=== PATIENT | male | born 1955 | race Hispanic/Latino ===

== ENCOUNTER 2020-06-08 19:26 | Inpatient (IN) | payer MEDICARE, OTHER ==
[2020-06-08 20:26] LABS: #Basophils 0.1 thou/uL (0.0-0.2); #Lymphocytes 1.7 thou/uL (1.20-3.40); #Neutrophils 6.6 thou/uL (1.40-6.50); %Basophils 1.2 % (0.0-1.0); %Eosinophils 9.3 % (0.0-10.0); %Lymphocytes 16.3 % (21.0-51.0); %Monocytes 9.3 % (0.0-10.0); Hemoglobin 14.2 g/dL (14.0-18.0); Mean Corpuscular HGB CONC 34.6 g/dL (32.0-36.0); Mean Corpuscular Hemoglobin 32.4 pg (27.0-31.0); Mean Corpuscular Volume 93.6 fL (78.0-98.0); Mean Platelet Volume 8.6 fL (7.4-10.4); Platelet Count 232 thou/uL (130-400); RBC Distribution Width 12.4 % (11.5-14.5); Red Blood Cell (RBC) Count 4.37 mill/uL (4.70-6.10); White Blood Cell (WBC) Count 10.3 thou/uL (4.8-10.8)
[2020-06-08 20:47] LABS: ALT (SGPT) 16 U/L (8-55); AST (SGOT) 15 U/L (5-34); Albumin 4.5 g/dL (3.4-4.8); Alkaline Phosphatase 57 U/L (40-110); Anion Gap 12 mmol/L (10-20); BUN (Urea Nitrogen) 13 mg/dL (8.4-25.7); Bilirubin, Total 0.5 mg/dL (0.2-1.2); Calc. Creatinine Clearance 0 mL/min (70-130); Calcium 9.3 mg/dL (7.8-10.44); Carbon Dioxide 25 mmol/L (23-31); Chloride 102 mmol/L (98-107); Estimated GFR-MDRD 62; Globulin 2.9 g/dL (2.4-3.5); Glucose 121 mg/dL (80-115); Potassium 3.4 mmol/L (3.5-5.1); Protein, Total 7.4 g/dL (5.8-8.1); Sodium 136 mmol/L (136-145)
[2020-06-08] MEDS ORDERED: methylPREDNISolone Sod Succ/PF 125 MG/2 ML VIAL ONE (21:20)
[2020-06-08] MEDS ORDERED: Magnesium 2 GM/50 ML BAG (IN WATER) ONE (21:20)
[2020-06-08] MEDS ORDERED: Albuterol 200 PUFF (6.7GM INHALER) ONE (21:21)
[2020-06-08 22:25] LABS: CKMB 6.3 ng/mL (0-6.6)
--- NOTE | 2020-06-08 23:11 | RAD ---
EXAM: CHEST ONE VIEW HISTORY: Dyspnea and respiratory distress. COMPARISON: 12/31/2003 FINDINGS: Cardiac silhouette and pulmonary vasculature are within normal limits. Interstitial opacities are see n in the lungs bilaterally. There is retraction of the left hilum. Bullous emphysematous changes are seen bilaterally. Findings are most compatible with chronic lung changes which were also present on prior study not significantly changed. Calcified granuloma seen on the right. There is blunting of the left lateral costophrenic angle which may represent small left pleural effusion versus pleural and parenchymal scarring. This was not seen on prior exam. No other interval change. IMPRESSION: 1. Overall stable chronic lung changes. 2. Blunting of the left lateral costophrenic angle which was not present on the prior study. This may represent small left pleural effusion versus pleural and parenchymal scarring.
[2020-06-08] MEDS ORDERED: cefTRIAXone\\ROCEPHIN 1 GM VIAL ONE (23:42)
[2020-06-08] MEDS ORDERED: Morphine 4 MG/ML VIAL ONE (23:42)
[2020-06-09 00:55] LABS: SARS-CoV-2 NAA Rapid Test Not Detected (NotDetected)
[2020-06-09 01:06] LABS: Troponin I 0.092 ng/mL (< 0.028)
[2020-06-09] MEDS ORDERED: Ondansetron ODT 4 MG TAB PO PRN (03:41)
[2020-06-09] MEDS ORDERED: hydrALAZINE 20 MG/ML VIAL SLOW IVP PRN (03:41)
[2020-06-09] MEDS ORDERED: Ondansetron PF 4 MG/2 ML Vial IVP PRN (03:41)
[2020-06-09] MEDS ORDERED: Nitroglycerin 0.4 MG TAB (25 Tab Bottle) PO PRN (03:41)
[2020-06-09] MEDS ORDERED: Montelukast Sodium 10 mg Tablet PO SCH (04:15)
--- NOTE | 2020-06-09 04:31 | HP ---
PRIMARY CARE PROVIDER: [facility]. CHIEF COMPLAINT: Shortness of breath. HISTORY OF PRESENT ILLNESS: This is a 65-year-old male, who presents to [facility] Emergency Department complaining of increasing shortness of breath over the last 48 hours. The patient's history is significant for chronic obstructive pulmonary disease and has been followed by side show entertainer in the [place] area. The patient states he had increasing frequency of using his home nebulized treatments, but they have not improved his symptoms or decreased his shortness of breath. The patient denied any chills, fever, or exposure history. The patient denies taking chronic prednisone therapy or using home oxygen. The patient admits to increased work of breathing and chest tightness as well as heart racing when he has coughing spells. The patient denied any hemoptysis, abdominal pain, change to his bowel habits. The patient denies any current tobacco use stating that he quit tobacco products in 2017. In the emergency room, the patient underwent general evaluation with chest imaging showing chronic lung changes and blunting of the left lateral costophrenic angle, likely representing a small pleural effusion. The patient received multiple nebulized treatments as well as IV Rocephin, morphine sulfate, and Solu-Medrol. The patient also received 2 g of magnesium sulfate and referred to the Hospitalist Service for further evaluation. PAST MEDICAL HISTORY: 1. Chronic obstructive pulmonary disease. 2. Remote tobacco abuse. 3. Hypertension. PAST SURGICAL HISTORY: Status post thoracentesis secondary to pleural effusion. CURRENT MEDICATIONS: We will need to obtain accurate list from the patient's family. ALLERGIES: NO KNOWN DRUG ALLERGIES. FAMILY HISTORY: Positive for hypertension. SOCIAL HISTORY: Resides in [place], [place]. Quit smoking in 2017. Occasional alcohol use. No illicit drug use. REVIEW OF SYSTEMS: CONSTITUTIONAL: Negative for weight loss or gain, ability to conduct usual activities. SKIN: Negative for rash, itching. EYES: Negative for double vision, pain. ENT/MOUTH: Negative for nose bleeding, neck stiffness, pain, tenderness. CARDIOVASCULAR: Negative for palpitations, dyspnea on exertion, orthopnea. RESPIRATORY: Negative for shortness of breath, wheezing, cough, hemoptysis, fever or night sweats. GASTROINTESTINAL: Negative for poor appetite, abdominal pain, heartburn, nausea, vomiting, constipation, or diarrhea. GENITOURINARY: Negative for urgency, frequency, dysuria, nocturia. MUSCULOSKELETAL: Negative for pain, swelling. NEUROLOGIC/PSYCHIATRIC: Negative for anxiety, depression. ALLERGY/IMMUNOLOGIC: Negative for skin rash, bleeding tendency. Otherwise negative except as stated per HPI. PHYSICAL EXAMINATION: VITAL SIGNS: On admission, blood pressure 121/84, pulse 126, respiratory rate 28, temperature 98.2 degrees Fahrenheit, O2 saturation 97% on 2 L per minute by nasal cannula. GENERAL APPEARANCE: This is a 65-year-old male, alert and oriented x3, pleasant, in [id number] respiratory distress. HEENT: Pupils are equal, round, reactive to light and accommodation. Extraocular muscles are intact. No scleral icterus. No conjunctival injection. Nares patent. OP is clear. Teeth in fair repair. NECK: Supple. No cervical adenopathy. No thyromegaly. No carotid bruits. No JVD appreciated. Cervical spine, full active and passive range of motion. No meningeal signs noted. CHEST: Diminished breath sounds in the bases bilaterally. Expiratory wheezes with prolonged expiratory phase. Accessory muscle use. CARDIOVASCULAR: S1 and S2 with tachycardia. Distant heart sounds are noted. ABDOMEN: Flat, soft, nontender, and nondistended. Bowel sounds are positive in all 4 quadrants. There is no hepatosplenomegaly. No abdominal bruits. No rebound or guarding appreciated. EXTREMITIES: Warm and dry with fair turgor. No clubbing, cyanosis, or asymmetric edema appreciated. Pulses palpable distally at the dorsalis pedis, posterior tibial, and popliteal arteries bilaterally. Capillary refill less than 2 seconds. NEUROLOGIC: Cranial nerves 2 through 12 are grossly intact. No focal or lateralizing signs appreciated. PERTINENT LABORATORY AND X-RAY FINDINGS: Sodium 136, potassium 3.4, chloride 102, CO2 of 25, BUN 13, creatinine 1.17, estimated GFR of 62, glucose 121, and calcium 9.3. Troponin I ranged between 0.09 to 0.095. Lipase 16. CBC within normal limits. D-dimer 0.36. SARS-CoV-2 PCR not detected on 06/08/2020. Portable chest x-ray dated 06/08/2020 showed chronic changes with left lower lobe pleural effusion. EKG dated 06/08/2020 by my interpretation shows sinus tachycardia, heart rates over 110, normal R-wave progression noted in the precordial leads, normal axis, occasional PVC noted. ASSESSMENT AND PLAN: 1. Acute chronic obstructive pulmonary disease exacerbation. Continue oxygen supplementation to maintain O2 saturations greater than or equal to 88%. Solu-Medrol 40 mg IV q.6 hours with additional Levaquin 750 mg IV daily. DuoNebs q.4 hours. Add Dulera 2 puffs b.i.d. Consult Pulmonology Service in the a.m. for any further recommendations. 2. [id number] myocardial infarction. Suspect type 2 with demand ischemia in the context of #1. Continue aspirin 325 mg daily. Consult Cardiology Service for any further recommendations. Check fasting lipid profile in the a.m. 3. Hypokalemia. Provide potassium chloride 40 mEq p.o. b.i.d. and repeat potassium level in the a.m. 4. Hypertension. We will confirm home blood pressure regimen and monitor clinical response. 5. Prophylaxis. SCDs while in bed. Pepcid 20 mg p.o. b.i.d. 6. Code Status is full. Surrogate medical decision maker is the patient's brother. Job ID: [id number]
[2020-06-09 05:29] LABS: Troponin I 0.093 ng/mL (< 0.028)
[2020-06-09 05:49] VITALS: BMI 24.2
[2020-06-09] MEDS: methylPREDNISolone Sod Succ 40 MG VIAL IVP SCH ×3 (06:09→17:46)
[2020-06-09] MEDS: Acetaminophen 500 MG TAB PO PRN ×3 (06:14→23:23)
[2020-06-09] MEDS: Mometasone 200 MCG/Formoterol 5 MCG 120 PUFF INHALER INH SCH ×2 (07:47→19:33)
[2020-06-09] MEDS: Potassium Chloride 20 MEQ TAB PO SCH ×2 (08:38→17:36)
[2020-06-09] MEDS: Aspirin 325 mg Enteric Coated Tablet PO SCH (08:39)
[2020-06-09] MEDS: Famotidine 20 MG TAB PO SCH ×2 (09:01→21:07)
--- NOTE | 2020-06-09 11:59 | PDOC.HOSPP ---
- Subjective Encounter Date: 06/09/20 Encounter Time: 10:30 Subjective: c/o cough and sob has throat pain - Objective Vital Signs & Weight: Vital Signs (12 hours) Temp Pulse Resp BP Pulse Ox 06/09/20 11:42 97.6 F 120 H 24 H 173/118 H 96 06/09/20 10:19 100 20 06/09/20 08:30 98 06/09/20 07:58 97.4 F L 98 20 119/68 98 06/09/20 07:47 88 L 06/09/20 07:46 105 H 28 H 88 L 06/09/20 04:27 101 H 20 98 06/09/20 04:00 97.9 F 98 13 122/69 95 06/09/20 02:00 96 06/09/20 01:40 97.7 F 104 H 24 H 149/80 H 96 Weight Weight 150 lb 1.6 oz I&O: 06/08/20 06/09/20 06/10/20 06:59 06:59 06:59 Output Total 450 Balance -450 Result Diagrams: 06/08/20 20:18 06/08/20 20:19 Hospitalist ROS - Medication Medications: Active Medications Generic Name Dose Route Start Last Admin Trade Name Freq PRN Reason Stop Dose Admin Acetaminophen 1,000 mg 06/09/20 03:41 06/09/20 06:14 Tylenol PO 1,000 mg Q6H PRN Administration Mild Pain (1-3) Albuterol/Ipratropium 3 ml 06/09/20 07:00 06/09/20 10:19 Duoneb NEB 3 ml [id number] CARMEN Administration Aspirin 325 mg 06/09/20 09:00 06/09/20 08:39 Ecotrin PO 325 mg DAILY CARMEN Administration Famotidine 20 mg 06/09/20 09:00 06/09/20 09:01 Pepcid PO 20 mg BID CARMEN Administration Levofloxacin 750 mg/ Device 150 mls @ 100 mls/hr 06/09/20 04:00 06/09/20 04: 34 IVPB 150 mls Q24HR CARMEN Administration Methylprednisolone Sodium Succinate 40 mg 06/09/20 06:00 06/09/20 11:20 Solu-Medrol IVP 40 mg Q6HR CARMEN Administration Mometasone Furoate/Formoterol Fumar 2 puff 06/09/20 06:30 06/09/20 07:47 Dulera 200 Mcg/5 Mcg Inhaler INH 2 puff BID-RT CARMEN Administration Potassium Chloride 40 meq 06/09/20 08:00 06/09/20 08:38 K-Dur PO 40 meq BID-WM CARMEN Administration - Exam General Appearance: awake alert Eye: PERRL, anicteric sclera ENT: no oropharyngeal lesions, moist mucosa Neck: supple, no JVD Heart: RRR, no murmur Respiratory: rhonchi, wheezes Gastrointestinal: soft, non-tender, non-distended, normal bowel sounds Extremities: no cyanosis, no edema Neurological: cranial nerve grossly intact, no focal deficits Psychiatric: normal affect, A&O x 3 Hosp A/P (1) COPD exacerbation Code(s): J44.1 - CHRONIC OBSTRUCTIVE PULMONARY DISEASE W (ACUTE) EXACERBATION Status: Acute (2) HTN (hypertension) Code(s): I10 - ESSENTIAL (PRIMARY) HYPERTENSION Status: Chronic Qualifiers: Hypertension type: essential hypertension Qualified Code(s): I10 - Essential (primary) hypertension (3) Type 2 MA (myocardial infarction) Code(s): I21.A1 - MYOCARDIAL INFARCTION TYPE 2 Status: Acute - Plan CT chest, has chr lung disease/fibrosis and emphysematous changes continue solumedrol, nebs, dulera, empiric levaquin and aspirin may tx to med floor if ok with covmayela 19 pcr is -ve
--- NOTE | 2020-06-09 13:46 | CT ---
CT CHEST WITHOUT CONTRAST: 06/09/20 INDICATIONS: COPD, Emphysema and history of tobacco abuse. Shortness of breath. CORRELATION: Correlation made to portable chest from 06/08/20. FINDINGS: Severe chronic lung changes are seen. Severe emphysematous changes are noted with large bullous manuel es seen in the upper lobes bilaterally. There is fibrotic stranding throughout both lungs. Pleural thickening is seen posteriorly on the left with mild pleural calcified plaquing. This explain s the blunting of the CP angles noted on chest film. There is bilateral apical pleural thickening and pleural and parenchymal opacities seen in both apica l regions. There are scattered parenchymal calcifications in the apices bilaterally. Soft tissue comp onent to this apical stranding and pleural thickening should be followed to confirm stability. There are two adjacent calcified nodules in the right mid lung along the inferior surface of the tess r fissure each measuring approximately 5 to 6 mm. There are two nodular opacities in the superior segment of the right upper lobe posteriorly seen on a xial images 22. The largest of these is slightly posterior and measures 10 mm in axial plane but has a more linear configuration in the sagittal and coronal planes. There is associated calcification al cheyanne the superior margin of this nodular mass. It does have some spiculation. This should be followed closely to rule out scar carcinoma. The more anterior nodular opacity measures approximately 12 mm in the coronal plane and also has a pe ripheral calcification. Scar carcinoma at this site should also be excluded. No other suspicious mass or nodule. The mediastinum is unremarkable. Images through upper abdomen unr emarkable. Osseous structures unremarkable. IMPRESSION: 1. Severe chronic lung parenchymal changes with severe bullous emphysematous changes in the uppe r lobes. 2. There are 2 nodular opacities in the superior segment of the right lower lobe posteriorly whi ch are of concern. Both of these have associated calcifications; however, scar carcinomas cannot be e xcluded given the soft tissue components. Considerations include close follow-up CT and/or PET scan t o assess activity. 3. Bilateral apical pleural thickening is prominent with apical parenchymal scarring. Prominent soft tissue components are present and this should also be followed closely to confirm stability. PET scan would be of use to assess activity in this region. 4. There are scattered calcified granuloma. 5. Pleural thickening posteriorly on the left with pleural calcified plaquing. POS: AGW
[2020-06-09] MEDS: Benzonatate 100 MG CAP PO PRN (14:21)
--- NOTE | 2020-06-09 14:57 | CON ---
DATE OF CONSULTATION: 06/09/2020 REASON FOR CONSULTATION: Chest pain and indeterminate troponins. HISTORY OF PRESENT ILLNESS: Mr. Thompson is a very pleasant 65-year-old white gentleman, who comes to the hospital for shortness of breath. He has a significant history of COPD. He follows with a lung specialist in [place]. He comes in for worsening shortness of breath. He also complains of chest pain. He tells me the chest pain is only there when he coughs, and if he does not cough, he does not feel bad. If he takes a deep breath, it also hurts. He has never had any heart catheterization in the past. His troponins were mildly elevated, so Cardiology has been consulted for this. PAST MEDICAL HISTORY: 1. COPD. 2. History of tobacco use. 3. Hypertension. PAST SURGICAL HISTORY: Thoracentesis secondary to pleural effusion. OUTPATIENT MEDICATIONS: Unknown at this time. Family is yet to bring adequate list. The patient does not know his medications. ALLERGIES: NO KNOWN DRUG ALLERGIES. FAMILY HISTORY: Noncontributory. SOCIAL HISTORY: No alcohol, tobacco, or drugs. Quit smoking in 2017. Only social alcohol use. REVIEW OF SYSTEMS: A 12-point review of systems was done and was found to be negative other than stated in the history of present illness. PHYSICAL EXAMINATION: VITAL SIGNS: Temperature 97.6, pulse 98, respiratory rate 20, saturating 98% on 3 L nasal cannula, and blood pressure 138/67. GENERAL: Awake, alert, oriented x3, in mild respiratory distress. HEENT: Normocephalic and atraumatic. NECK: Supple. LUNGS: Reduced breath sounds bilaterally with expiratory wheezes. CARDIOVASCULAR: S1 and S2. No S3 or S4. Difficult to assess for murmurs as heart sounds are distant. ABDOMEN: Soft. Positive bowel sounds. EXTREMITIES: No edema. SKIN: Warm and dry. LABORATORY DATA: Laboratory work was reviewed. White count of 10, hemoglobin of 14, hematocrit 41, and platelet count 232. Coags, D-dimer was normal. Chemistry with a potassium of 3.4, normal sodium, chloride, carbon dioxide, anion gap was 12, BUN of 13, creatinine 1.17, and GFR of 62. Troponin was 0.09, 0.09, 0.09 x3. CK-MB was 6.3. Lipase was normal. COVID-[address] of the chest was reviewed. He has atherosclerotic disease on his aorta, bilateral apical pleural thickening, prominent with parenchymal scarring, scattered calcified granulomas, right lower lobe nodular opacities that are concerning, and severe bullous emphysematous changes in the upper lobes. Echocardiogram was reviewed, showed an EF of 55% to 60%, right side is dilated with normal RV systolic function. ASSESSMENT AND PLAN: 1. Type 2 demand type . 2. Chronic obstructive pulmonary disease with acute exacerbation. 3. Pulmonary nodules. PLAN: 1. Cardiovascular at this point is stable and unlikely to be a cause of his primary issue. Most likely, this is mainly a COPD exacerbation. 2. Troponin elevation is consistent with demand type with no fluctuation in the value on 3 different draws. Most likely related to mildly dilatation of the right side of the heart, consistent with his history of COPD. 3. No indication to treat with full anticoagulation from the cardiac perspective. 4. We would avoid beta-blockers given his severe COPD. 5. DIANA inhibitors for blood pressure if needed. We would continue to monitor for now as he has been mostly normal. 6. May transfer to non-telemetry floor. Thank you for letting us participate in the care of your patient. We will follow. Job ID: [id number]
[2020-06-09] MEDS ORDERED: Prevnar 13-Val Conj/PF 0.5 ML SYRINGE IM ONE (21:00)
[2020-06-10] MEDS: methylPREDNISolone Sod Succ 40 MG VIAL IVP SCH ×2 (00:11→05:48)
[2020-06-10] MEDS: Benzonatate 100 MG CAP PO PRN (03:32)
[2020-06-10 06:02] LABS: #Lymphocytes 0.5 thou/uL (1.20-3.40); #Monocytes 0.4 thou/uL (0.11-0.59); #Neutrophils 9.2 thou/uL (1.40-6.50); %Eosinophils 0.1 % (0.0-10.0); %Neutrophils 90.9 % (42.0-75.0); Hemoglobin 12.2 g/dL (14.0-18.0); Mean Corpuscular HGB CONC 32.9 g/dL (32.0-36.0); Mean Corpuscular Hemoglobin 31.1 pg (27.0-31.0); Mean Corpuscular Volume 94.6 fL (78.0-98.0); Mean Platelet Volume 8.6 fL (7.4-10.4); Platelet Count 204 thou/uL (130-400); RBC Distribution Width 12.3 % (11.5-14.5); Red Blood Cell (RBC) Count 3.93 mill/uL (4.70-6.10); White Blood Cell (WBC) Count 10.1 thou/uL (4.8-10.8)
[2020-06-10 06:27] LABS: Anion Gap 13 mmol/L (10-20); BUN (Urea Nitrogen) 19 mg/dL (8.4-25.7); Calc. Creatinine Clearance 69 mL/min (70-130); Calcium 8.9 mg/dL (7.8-10.44); Carbon Dioxide 23 mmol/L (23-31); Cardiac Risk 4.2 (Less than 4.5); Chloride 105 mmol/L (98-107); Cholesterol 231 mg/dl (< 200 Desired); Estimated GFR-MDRD 73; Glucose 127 mg/dL (80-115); HDL Cholesterol 55 mg/dL (>60 Neg Risk); LDL Cholesterol, Calculated 158 mg/dL; Potassium 4.8 mmol/L (3.5-5.1); Sodium 136 mmol/L (136-145); Triglycerides 91 mg/dL (Less than 150)
[2020-06-10] MEDS: Mometasone 200 MCG/Formoterol 5 MCG 120 PUFF INHALER INH SCH ×2 (07:44→19:40)
[2020-06-10] MEDS: Aspirin 325 mg Enteric Coated Tablet PO SCH (08:37)
[2020-06-10] MEDS: Famotidine 20 MG TAB PO SCH ×2 (08:37→19:53)
[2020-06-10] MEDS: HYDROcodone/Acetaminophen 10/325 mg Tablet PO PRN ×2 (08:38→19:52)
[2020-06-10] MEDS: Potassium Chloride 20 MEQ TAB PO SCH (08:38)
--- NOTE | 2020-06-10 11:41 | PDOC.HOSPP ---
- Subjective Encounter Date: 06/10/20 Encounter Time: 11:15 Subjective: no new complaints is watching tv, says he will walk today has a pulm and pcp in [place] area, lives with his brother is not on home O2, says he quit smoking 4 yrs back is eating well although he doesn't the food - Objective Vital Signs & Weight: Vital Signs (12 hours) Temp Pulse Resp BP Pulse Ox 06/10/20 11:08 93 L 06/10/20 10:34 102 H 20 06/10/20 08:38 97 06/10/20 08:00 98 06/10/20 07:44 99 20 06/10/20 05:11 92 20 99 06/10/20 05:07 97.8 F 86 22 H 109/62 99 06/10/20 00:10 98.5 F 90 20 126/68 98 Weight Weight 150 lb 1.6 oz I&O: 06/09/20 06/10/20 06/11/20 06:59 06:59 06:59 Intake Total 800 Output Total 1350 Balance -550 Result Diagrams: 06/10/20 05:53 06/10/20 05:53 Hospitalist ROS - Medication Medications: Active Medications Generic Name Dose Route Start Last Admin Trade Name Freq PRN Reason Stop Dose Admin Acetaminophen 1,000 mg 06/09/20 03:41 06/09/20 23:23 Tylenol PO 1,000 mg Q6H PRN Administration Mild Pain (1-3) Hydrocodone Bitart/Acetaminophen 1 tab 06/10/20 05:01 06/10/20 08:38 [place] 10/325 PO 1 tab Q6H PRN Administration Moderate Pain (4-6) Albuterol/Ipratropium 3 ml 06/09/20 07:00 06/10/20 10:34 Duoneb NEB 3 ml [id number] CARMEN Administration Albuterol/Ipratropium 3 ml 06/10/20 05:01 06/10/20 05:11 Duoneb NEB 3 ml Q4H PRN Administration SOB &/or Wheezing Aspirin 325 mg 06/09/20 09:00 06/10/20 08:37 Ecotrin PO 325 mg DAILY CARMEN Administration Benzonatate 100 mg 06/09/20 03:41 06/10/20 03:32 Tessalon PO 100 mg Q6H PRN Administration Cough Famotidine 20 mg 06/09/20 09:00 06/10/20 08:37 Pepcid PO 20 mg BID CARMEN Administration Mometasone Furoate/Formoterol Fumar 2 puff 06/09/20 06:30 06/10/20 07:44 Dulera 200 Mcg/5 Mcg Inhaler INH 2 puff BID-RT CARMEN Administration - Exam General Appearance: awake alert Eye: PERRL, anicteric sclera ENT: no oropharyngeal lesions, moist mucosa Neck: supple, no JVD Heart: RRR, no murmur Respiratory: no rales, rhonchi, wheezes Gastrointestinal: soft, non-tender, non-distended, normal bowel sounds Extremities: no cyanosis, no edema Neurological: cranial nerve grossly intact, no focal deficits Psychiatric: normal affect, A&O x 3 Hosp A/P (1) COPD exacerbation Code(s): J44.1 - CHRONIC OBSTRUCTIVE PULMONARY DISEASE W (ACUTE) EXACERBATION Status: Acute (2) HTN (hypertension) Code(s): I10 - ESSENTIAL (PRIMARY) HYPERTENSION Status: Chronic Qualifiers: Hypertension type: essential hypertension Qualified Code(s): I10 - Essential (primary) hypertension (3) Type 2 DE (myocardial infarction) Code(s): I21.A1 - MYOCARDIAL INFARCTION TYPE 2 Status: Acute - Plan CT chest results noted, he will need outpt PET scan via his Pulm in [place], has chr lung disease/fibrosis and emphysematous changes continue prednisone, nebs, dulera, empiric omnicef and aspirin echo shows normal ef, has elevated rv press likely from copd/emphysema covid 19 pcr is -ve taper and dc nasal O2 dc plan in am needs to ambulate in hallway
--- NOTE | 2020-06-10 12:17 | PDOC.CPN ---
- Subjective Date: 06/10/20 Time: 12:15 Interval history: No new issues. - Review of Systems General: denies: fever/chills, weight/appetite/sleep changes, night sweats, fatigue Respiratory: reports: shortness of breath. denies: cough, congestion, exercise intolerance Cardiovascular: denies: chest pain, palpitation, edema, paroxysmal nocturnal dyspnea, orthopnea Gastrointestinal: denies: nausea, vomiting, diarrhea, constipation, abd pain, GI bleeding Musculoskeletal: denies: pain, tenderness, stiffness, swelling, arthritis/ arthralgias Neurological: denies: numbness, syncope, seizure, weakness - Objective Allergies/Adverse Reactions: Allergies Allergy/AdvReac Type Severity Reaction Status Date / Time No Known Drug Allergies Allergy Verified 06/09/20 07:39 Visit Medications: Current Medications Acetaminophen (Tylenol) 1,000 mg PO Q6H PRN PRN Reason: Mild Pain (1-3) Last Admin: 06/09/20 23:23 Dose: 1,000 mg Hydrocodone Bitart/Acetaminophen ([place] 10/325) 1 tab PO Q6H PRN PRN Reason: Moderate Pain (4-6) Last Admin: 06/10/20 08:38 Dose: 1 tab Albuterol/Ipratropium (Duoneb) 3 ml NEB [id number] [facility] Last Admin: 06/10/20 10:34 Dose: 3 ml Albuterol/Ipratropium (Duoneb) 3 ml NEB Q4H PRN PRN Reason: SOB &/or Wheezing Last Admin: 06/10/20 05:11 Dose: 3 ml Aspirin (Ecotrin) 325 mg PO DAILY [facility] Last Admin: 06/10/20 08:37 Dose: 325 mg Benzonatate (Tessalon) 100 mg PO Q6H PRN PRN Reason: Cough Last Admin: 06/10/20 03:32 Dose: 100 mg Cefdinir (Omnicef) 300 mg PO BID [facility] Famotidine (Pepcid) 20 mg PO BID [facility] Last Admin: 06/10/20 08:37 Dose: 20 mg Hydralazine HCl (Apresoline) 10 mg SLOW IVP Q4H PRN PRN Reason: SBP > 180 and HR < 70 Mometasone Furoate/Formoterol Fumar (Dulera 200 Mcg/5 Mcg Inhaler) 2 puff INH BID-RT CARMEN Last Admin: 06/10/20 07:44 Dose: 2 puff Nitroglycerin (Nitrostat) 0.4 mg PO Q5MIN PRN PRN Reason: Chest Pain Ondansetron HCl (Zofran Odt) 4 mg PO Q6H PRN PRN Reason: Nausea/Vomiting Ondansetron HCl (Zofran) 4 mg IVP Q6H PRN PRN Reason: Nausea/Vomiting Prednisone (Prednisone) 40 mg PO QAM[facility] Sodium Chloride (Flush - Normal Saline) 10 ml IVF PRN PRN PRN Reason: Saline Flush Vital Signs & Weight: Vital Signs Temp Pulse Resp BP Pulse Ox 06/10/20 11:08 93 L 06/10/20 10:34 102 H 20 06/10/20 08:38 97 06/10/20 08:00 98 06/10/20 07:44 99 20 06/10/20 05:11 92 20 99 06/10/20 05:07 97.8 F 86 22 H 109/62 99 Weight 150 lb 1.6 oz - Physical Exam General: alert & oriented x3 HEENT: mucus membranes moist Neck: supple neck Cardiac: regular rate and rhythm Lungs: decreased breath sounds Neuro: grossly intact Abdomen: active bowel sounds Extremities: no edema Skin: clear Musculoskeletal: no pain - Labs Result Diagrams: 06/10/20 05:53 06/10/20 05:53 Troponin/CKMB CK-MB (CK-2) 6.3 ng/mL (0-6.6) 06/08/20 20:19 Troponin I 0.093 ng/mL (< 0.028) H 06/09/20 04:38 - Assessment/Plan Assessment/Plan: 1. COPD with acute exacerbation. 2. Type 2 AR, demand ischemia 3. Pulmonary nodules. PLAN: - CV stable. - Will sign off. Please call with any questions.
[2020-06-10] MEDS: Cefdinir 300 MG CAP PO SCH (19:53)
[2020-06-11] MEDS: Mometasone 200 MCG/Formoterol 5 MCG 120 PUFF INHALER INH SCH (06:45)
[2020-06-11 07:45] VITALS: BP 133/73; TEMP 98.4
[2020-06-11] MEDS ORDERED: predniSONE 20 MG TAB PO SCH (08:00)
[2020-06-11] MEDS: Cefdinir 300 MG CAP PO SCH (08:45)
[2020-06-11] MEDS: Famotidine 20 MG TAB PO SCH (08:45)
[2020-06-11] MEDS: Aspirin 325 mg Enteric Coated Tablet PO SCH (08:45)
--- NOTE | 2020-06-11 18:00 | DIS ---
DATE OF ADMISSION: 06/09/2020 DATE OF DISCHARGE: 06/11/2020 DISCHARGE DISPOSITION: Home. PRIMARY DISCHARGE DIAGNOSES: 1. Chronic obstructive pulmonary disease exacerbation. 2. Bjmko-so-nogxbsv respiratory failure with hypoxia secondary to chronic obstructive pulmonary disease exacerbation. 3. Hypertension. 4. Demand ischemia secondary to chronic obstructive pulmonary disease exacerbation. 5. Type-2 myocardial infarction. PROCEDURES DONE DURING HOSPITALIZATION: CT of chest without contrast done on 06/09/2020 showed severe chronic lung parenchymal changes with severe bullous emphysematous changes in the upper lobes. There are 2 nodular opacities in the superior segment of the right lower lobe posteriorly, which are of concern, they both have associated calcifications. The patient will require a PET scan to assess activity as an outpatient. Bilateral apical pleural thickening. Echo with 2D Doppler done showed ejection fraction of 55% to 60%. White count of 10, H and H of 12 and 37, platelet count 204. D-dimer 0.36, BUN 19, creatinine 1.0, total cholesterol 231, triglycerides 91, LDL 158, HDL 55, troponin-I peaked up to 0.09, CK-MB 6.3. COVID-19 PCR was not detected on 06/08/2020. INPATIENT SUSTAINABILITY MANAGER: Dr. Lea for Cardiology. DISCHARGE PLAN: The patient to follow up with his election watcher in [facility] in 2 weeks to have outpatient PET scan for changes seen on the CT chest. He also needs to follow up with his primary care physician in 1 week. BRIEF COURSE DURING HOSPITALIZATION: The patient initially got admitted on the with complaints of shortness of breath. He was found wheezing with COPD exacerbation. The patient was placed on steroids along with nebulization and empiric antibiotics. He has had a CT chest without contrast done, which showed 2 nodules with calcification, which needs outpatient PET scan for the same. His COPD exacerbation resolved. The patient was weaned off oxygen 36 hours into hospitalization. He has ambulated in the hallway. He is hemodynamically stable. The patient has severe emphysematous changes on the CT scan. He has a election watcher that he sees in [facility] and needs to follow up with his specialist. Please note, I have seen and examined the patient on the day of discharge. Job ID: [id number]
--- NOTE | 2020-06-13 05:39 | PQF ---
CLINICAL DOCUMENTATION CLARIFICATION FORM: Dear : Alex Johnson Date / Time: 06/13/2020 05:38 Please exercise your independent, professional judgment in responding to the clarification form. Clinical indicators are provided on the bottom of this form for your review Based on the clinical indicators on admit, can you determine if acute on chronic respiratory failure was present at the time of admission or developed after admission? Diagnosis: Acute on chronic respiratory failure Present on Admission (POA): [ ] Yes [ ] No [ ] Unable to determine Has acute respiratory failure presented with this admission which got resolved. Physician Signature: Date/Time: For continuity of documentation, please document condition throughout progress notes and discharge summary. Thank You. To be completed by CDI/Coding staff for physician review: Present Clinical Indicators - Signs / Symptoms / Labs Results and Location in Medical Record [x] Acute on chronic respiratory with hypoxia DS 06/11 [x] presented with SOB ED Notes 06/08 [x] mild to moderate respiratory distress HP 06/08 [x] Diminished breath sounds in the bases bilaterally. Expiratory wheezes with prolonged expiratory phase. 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
== END 2020-06-11 11:50 | disposition home or self-care (01) | DRG 190 ==
LOC: ERS 19:26 → 2SE 06-09 00:09 → ONC 06-09 19:55
PROVIDERS: ADMIT Family Medicine; ATTEND Family Medicine
DX: J44.1 Chronic obstructive pulmonary disease with (acute) exacerbation (principal); I21.A1 Myocardial infarction type 2; J96.21 Acute and chronic respiratory failure with hypoxia; Z20.828 Contact with and (suspected) exposure to other viral communicable diseases; I10 Essential (primary) hypertension; E87.6 Hypokalemia; R91.1 Solitary pulmonary nodule; Z87.891 Personal history of nicotine dependence; Z23 Encounter for immunization
CPT/HCPCS: 36415; 71045; 71250; 80048; 80053; 80061; 82553; 83690; 84484; 85025; 85379; 90471; 90670; 93005; 93306; 94640; 94760; 96361; 96365; 96367; 96375; G0009; J0696; J1956; J2270; J2920; J2930; J3475; J7512; J7620; U0002